=== PATIENT | female | born 1985 | race Caucasian/White ===

== ENCOUNTER 2016-06-22 09:34 | Inpatient (IN) | payer OTHER ==
[~2016-06-22] VITALS: Ht 177.8 cm; Wt 119.3 kg
[~2016-06-22 09:34] MED LIST: ALEV220T14 PO; IBUP600 PO; LORTA5 PO; YAZ PO
[2016-06-22] MEDS ORDERED: LACTATED RINGER'S 1000 ML INJ 1,000 ML IV ONE (10:50)
--- NOTE | 2016-06-22 10:54 | HHI.HP ---
HPI Chief Complaint for elective repeat cs at 39 weeks Date Seen: Jun 22, 2016 Time Seen: 10:30 Travel History International Travel<30 Days: No Contact w/Intl Traveler<30Days: No Known Affected Area: No History of Present Illness HPI previous cs and Vaginal delivery for repeat cs Para: 2 : 4 Miscarriage: 1 History Past Medical History Medical History: Denies Significant Hx Past Surgical History Narrative Surgical CS x1 Family History Family History: Negative Social History Alcohol Use: No Tobacco Use: No Substance Abuse: No Allergies-Medications (Allergen,Severity, Reaction): Coded Allergies: No Known Allergies (Verified , 11/25/11) Home Meds Active Scripts Ibuprofen (Motrin 600 Mg Tab)600 Mg [id number] Mg PO Q6H PRN (PAIN) #20 TAB Prov:Terrence Morales MD 06/11/13 Hydrocodone-Acetaminophen 5-325 mg ([place] 5-325 mg)325 Mg/5 Mg Tab1 Tab PO Q6H PRN (PAIN) #15 TAB Prov:Terrence Morales MD 06/11/13 Reported Medications Naproxen Sodium (Aleve Arthritis)220 Mg [id number] Mg PO BID 06/11/13 [Shara 28] No Conflict Check1 Tab PO DAILY 11/23/11 Review of Systems Except as stated in HPI: all other systems reviewed are Neg Physical Exam Narrative GENERAL: Well-nourished, well-developed patient. SKIN: Warm and dry. HEAD: Normocephalic and atraumatic. EYES: No scleral icterus. No injection or drainage. ENT: No nasal drainage noted. Mucous membranes pink. Airway patent. NECK: Supple, trachea midline. No JVD. CARDIOVASCULAR: Regular rate and rhythm without murmurs, gallops, or rubs. RESPIRATORY: Breath sounds equal bilaterally. No accessory muscle use. BREASTS: Bilateral exam showed no masses , no retractions, no nipple discharge. ABDOMEN/GI: Abdomen soft, non-tender, bowel sounds present, no rebound, no guarding Gravid to 39 weeks size Fundal Height: [-] GENITOURINARY: External Genitalia: intact and normal in appearance BUS glands: [-] Cervix: cl Dilatation: [-] Effacement: [-] Station: [-] Presentation: [-] Membranes: [intact or ruptured] Uterine Contractions: [-] FHT's: Category: 1 Baseline: [-] Reactive: [-] Variability: [-] Decels: [-] EXTREMITIES: No cyanosis or edema. BACK: Nontender without obvious deformity. No CVA tenderness. NEUROLOGICAL: Awake and alert. Motor and sensory grossly within normal limits. Five out of 5 muscle strength in all muscle groups. Normal speech. Data Data Vital Signs Reviewed: Yes Assessment/Plan Problem List: (1) Previous section (2) 39 weeks gestation of Assessment and Plan for repeat cs Girish Pyle MD Jun 22, 2016 10:54
[2016-06-22 11:07] LABS: BASOPHIL # 0.1 TH/MM3 (0-0.2); BASOPHIL % 0.6 % (0.0-2.0); EOSINOPHIL # 0.1 TH/MM3 (0-0.4); EOSINOPHIL % 0.5 % (0.0-4.0); HEMATOCRIT 23.4 % (35.0-46.0); LYMPH % 14.5 % (9.0-44.0); LYMPHOCYTE # 1.7 TH/MM3 (1.0-4.8); MEAN CELL VOLUME 65.7 FL (80.0-100.0); MEAN CORPUSCULAR HEMOGLOBIN 20.2 PG (27.0-34.0); MEAN CORPUSCULAR HGB CONC 30.7 % (32.0-36.0); MONO % 6.1 % (0.0-8.0); NEUT % 78.3 % (16.0-70.0); PLATELET COUNT 189 TH/MM3 (150-450); RED BLOOD COUNT 3.56 MIL/MM3 (4.00-5.30); RED CELL DISTRIBUTION WIDTH 23.3 % (11.6-17.2); WHITE BLOOD COUNT 11.5 TH/MM3 (4.0-11.0)
[2016-06-22 11:09] LABS: HEMO FLAGS AUTO DIFF
[2016-06-22 11:16] LABS: BACTERIA, URINE RARE /hpf; BLOOD, URINE NEG (NEG); COMMENT (UR) CULT NOT INDICATED; CULTURE IF INDICATED CULT NOT INDICATED; GLUCOSE,URINE NEG (NEG); KETONE, URINE NEG (NEG); MUCUS URINE FEW /lpf (OCC); NITRITE,URINE NEG (NEG); PH, URINE 5.5 (5.0-8.5); SQUAMOUS EPITHELIAL CELL URINE 2 /hpf (0-5); URINE COLOR LIGHT-YELLOW (YELLW/STRAW)
[2016-06-22] MEDS: LACTATED RINGER'S 1000 ML INJ 1,000 ML IV SCH ×2 (11:17→14:55)
[2016-06-22 11:39] LABS: SCAN/DIFF AUTO DIFF CONFIRMED
[2016-06-22] MEDS ORDERED: ceFAZolin 2 GM PREMIX 50 ML IV SCH (12:00)
[2016-06-22] MEDS ORDERED: PREN29TA PO (12:04)
[2016-06-22] MEDS ORDERED: ZOFR4TAB PO (12:04)
[2016-06-22] MEDS ORDERED: ZANTTAB9 PO (12:04)
[2016-06-22] MEDS ORDERED: DIPH1TAB36 PO (12:04)
[2016-06-22] MEDS ORDERED: CITRIC ACID-SODIUM CITRATE LIQ 30 ML UDC PO SCH (12:30)
[2016-06-22 15:07] LABS: AUTOMATED NEUTROPHIL # 8.2 TH/MM3 (1.8-7.7); BASOPHIL % 0.3 % (0.0-2.0); EOSINOPHIL % 0.4 % (0.0-4.0); HEMATOCRIT 22.3 % (35.0-46.0); LYMPH % 16.9 % (9.0-44.0); LYMPHOCYTE # 1.8 TH/MM3 (1.0-4.8); MEAN CELL VOLUME 66.6 FL (80.0-100.0); MEAN CORPUSCULAR HEMOGLOBIN 20.3 PG (27.0-34.0); MEAN CORPUSCULAR HGB CONC 30.5 % (32.0-36.0); NEUT % 78.4 % (16.0-70.0); PLATELET COUNT 165 TH/MM3 (150-450); RED BLOOD COUNT 3.34 MIL/MM3 (4.00-5.30); RED CELL DISTRIBUTION WIDTH 22.8 % (11.6-17.2); WHITE BLOOD COUNT 10.4 TH/MM3 (4.0-11.0)
[2016-06-22 15:12] LABS: HEMO FLAGS AUTO DIFF
[2016-06-22 16:48] LABS: OVALOCYTES 1+ (NORMAL); PLATELET ESTIMATE SMEAR NORMAL (NORMAL); PLATELET MORPHOLOGY NORMAL (NORMAL); SCAN/DIFF AUTO DIFF CONFIRMED
[2016-06-22] MEDS ORDERED: OXYTOCIN 10 UNIT/ML AMP ONE (16:59)
[2016-06-22] MEDS ORDERED: ONDANSETRON HCL 4 MG/2 ML VIAL ONE (17:47)
[2016-06-22] MEDS ORDERED: MORPHINE SULFATE PF 5 MG/10 ML VIAL ONE (17:47)
--- NOTE | 2016-06-22 17:58 | PD.OB.DELI ---
Procedure Note Section Procedure Pre Op Diagnosis: (1) Previous section Post Op Diagnosis: (1) Previous section Performed by Girish Pyle Procedure: Repeat Low Transverse Sec Indication for delivery: Desired elective repeat Informed consent obtained: For anesthesia, For procedure Confirmed correct: Procedure, Time-out taken Anesthesia: Spinal Urinary catheter: Inserted using sterile technique, To dependent drainage Sterile preparation: Duraprep Position: Supine with wedge to left side Operative Features Skin Incision: Pfannenstiel Uterine Incision: Low transverse w/knife / blunt ext Presentation: Occiput anterior Infant: Female, Single One Minute : 8 Five Minute : 9 Weight: 8#1 oz Status of infant: Viable Placenta delivered: Intact Medications: Antibiotics Estimated blood loss: 300 Procedure tolerated: Well Maternal Condition: Stable Condition: Stable Girish Pyle MD Jun 22, 2016 17:57
[2016-06-22] MEDS ORDERED: SIMETHICONE 80 MG CHEWABLE TAB PO PRN (18:00)
[2016-06-22] MEDS ORDERED: SODIUM CHLORIDE 0.9% FLUSH 10 ML FLUSH IV FLUSH PRN (18:00)
[2016-06-22] MEDS ORDERED: OXYTOCIN 30 UNITS-500ML PREMIX 500 ML IV ONE (18:00)
[2016-06-22] MEDS ORDERED: oxyCODONE/ACETAMINOPHEN 5 MG/325 MG TAB PO PRN (18:00)
[2016-06-22] MEDS ORDERED: KETOROLAC TROMETHAMINE 60 MG/2 ML (IM) VIAL IM PRN (18:00)
[2016-06-22] MEDS ORDERED: LACTATED RINGER'S 1,000 ML BAG IV ONE (18:03)
[2016-06-22 19:00] VITALS: BP 131/83; PULSE 91; RESP 18
[2016-06-22 19:15] VITALS: BP 128/71; PULSE 90; RESP 18
[2016-06-22] MEDS ORDERED: OXYTOCIN 30 UNITS-500ML PREMIX 500 ML ONE (19:15)
[2016-06-22 19:30] VITALS: BP 126/74; PULSE 88; RESP 18; TEMP 97.8
[2016-06-22] MEDS ORDERED: EPIDURAL-NALOXONE HCL 0.4 MG/ML AMP IV PRN (20:30)
[2016-06-22] MEDS ORDERED: EPIDURAL-DIPHENHYDRAMINE HCL 50 MG CAP PO PRN (20:30)
[2016-06-22] MEDS ORDERED: EPIDURAL-DO NOT ADMINISTER ANTICOAGULANTS XX PRN (20:30)
[2016-06-22] MEDS ORDERED: EPIDURAL-NO SYSTEMIC NARCOTICS XX PRN (20:30)
[2016-06-22] MEDS ORDERED: EPIDURAL-DIPHENHYDRAMINE HCL 50 MG/ML VIAL IV PUSH PRN (20:30)
[2016-06-22] MEDS ORDERED: SODIUM CHLORIDE 0.9% FLUSH 10 ML FLUSH IV FLUSH SCH (21:00)
[2016-06-22 22:00] VITALS: BP 108/75; PULSE 88; RESP 18; TEMP 97.8
[2016-06-22] MEDS ORDERED: LACTATED RINGER'S 1000 ML INJ 1,000 ML IV SCH (22:53)
[2016-06-23 00:30] VITALS: BP 117/69; PULSE 90; RESP 18; TEMP 98.3
[2016-06-23] MEDS: IBUPROFEN 600 MG TAB PO PRN ×4 (00:40→20:16)
[2016-06-23] MEDS ORDERED: OXYTOCIN 30 UNITS-500ML PREMIX 500 ML IV PRN (04:00)
[2016-06-23 05:30] VITALS: BP 124/62; PULSE 86; RESP 18; TEMP 98.4
[2016-06-23 06:02] LABS: BASOPHIL % 0.3 % (0.0-2.0); EOSINOPHIL % 0.3 % (0.0-4.0); HEMATOCRIT 21.4 % (35.0-46.0); LYMPH % 11.7 % (9.0-44.0); LYMPHOCYTE # 1.4 TH/MM3 (1.0-4.8); MEAN CELL VOLUME 66.1 FL (80.0-100.0); MEAN CORPUSCULAR HEMOGLOBIN 20.3 PG (27.0-34.0); MEAN CORPUSCULAR HGB CONC 30.7 % (32.0-36.0); MONO % 4.8 % (0.0-8.0); NEUT % 82.9 % (16.0-70.0); PLATELET COUNT 170 TH/MM3 (150-450); RED BLOOD COUNT 3.23 MIL/MM3 (4.00-5.30); RED CELL DISTRIBUTION WIDTH 23.2 % (11.6-17.2); WHITE BLOOD COUNT 12.1 TH/MM3 (4.0-11.0)
[2016-06-23 06:26] LABS: HEMO FLAGS AUTO DIFF
--- NOTE | 2016-06-23 07:18 | HHI.OB ---
Subjective Post Day: 1 Remarks doing well hgb stable Objective Vitals/I&O Vital Signs Date Time Temp Pulse Resp B/P Pulse Ox O2 Delivery O2 Flow Rate FiO2 06/23/16 05:30 98.4 86 18 124/62 06/23/16 00:30 90 18 117/69 06/23/16 00:30 98.3 06/22/16 22:00 97.8 88 18 108/75 06/22/16 19:30 97.8 06/22/16 19:30 88 18 126/74 06/22/16 19:15 128/71 06/22/16 19:15 90 18 06/22/16 19:00 91 18 06/22/16 19:00 131/83 Objective Remarks GENERAL: Well-nourished, well-developed patient. CARDIOVASCULAR: Regular rate and rhythm without murmurs, gallops, or rubs. RESPIRATORY: Breath sounds equal bilaterally. No accessory muscle use. ABDOMEN/GI: Abdomen soft, non-tender. Fundus: Firm, non-tender at umbilicus. GENITOURINARY: Light to moderate bleeding. EXTREMITIES: No cyanosis or edema, non-tender, without signs of DVT. Medications and IVs Current Medications Medications (Trade) Dose Ordered Sig/[place] Route Start Time Stop Time Status Last Admin (Lr 1000 ml Inj) 1,000 ml @ 100 mls/hr Q10H IV 06/22/16 22:53 06/23/16 18:52 (NS Flush) 2 ml BID IV FLUSH 06/22/16 21:00 (NS Flush) 2 ml UNSCH PRN IV FLUSH 06/22/16 18:00 (Mylicon Chew) 80 mg QID PRN PO 06/22/16 18:00 (Motrin) 600 mg Q6H PRN PO 06/22/16 18:00 06/23/16 06:26 (Toradol Inj) 30 mg Q6H PRN IM 06/22/16 18:00 06/23/16 17:59 (Percocet 5-325 Mg) 1 tab Q4H PRN PO 06/22/16 18:00 (Percocet 5-325 Mg) 2 tab Q4H PRN PO 06/22/16 18:00 Miscellaneous Information NO SYSTEMIC NARCOTICS TO BE GIVEN FO... UNSCH PRN XX 06/22/16 20:30 06/23/16 20:29 (Narcan Inj) 0.4 mg UNSCH PRN IV 06/22/16 20:30 06/23/16 20:29 (Benadryl Inj) 25 mg Q6H PRN IV PUSH 06/22/16 20:30 06/23/16 20:29 06/23/16 01:18 (Benadryl) 50 mg Q6H PRN PO 06/22/16 20:30 06/23/16 20:29 Miscellaneous Information ALL NURSING DEPARTMENTS UNSCH PRN XX 06/22/16 20:30 06/23/16 20:29 Assessment/Plan Problem List: (1) Previous section (2) 39 weeks gestation of Assessment and Plan CS pp day #1 Girish Pyle MD Jun 23, 2016 07:18
[2016-06-23 08:00] VITALS: BP 122/66; PULSE 84; RESP 16; TEMP 98.4
[2016-06-23 08:21] LABS: OVALOCYTES 1+ (NORMAL); PLATELET ESTIMATE SMEAR NORMAL (NORMAL); PLATELET MORPHOLOGY ENLARGED (NORMAL)
[2016-06-23 08:22] LABS: SCAN/DIFF AUTO DIFF CONFIRMED
[2016-06-23] MEDS ORDERED: DIPHTH/TETANUS/ACEL PERTUSSIS (BOOSTER) 0.5 ML VIAL/PFS IM ONE (16:00)
[2016-06-23] MEDS ORDERED: MEASLES, MUMPS, RUBELLA VACCINE 0.5 ML VIAL SQ ONE (16:00)
[2016-06-23 20:30] VITALS: BP 125/69; PULSE 86; RESP 18; TEMP 98
--- NOTE | 2016-06-23 21:51 | HHI.OB ---
Subjective Post Day: 1 Remarks doing well no pain and not light headed Objective Vitals/I&O Vital Signs Date Time Temp Pulse Resp B/P Pulse Ox O2 Delivery O2 Flow Rate FiO2 06/23/16 20:30 98.0 86 18 125/69 06/23/16 08:00 84 16 122/66 06/23/16 08:00 98.4 06/23/16 05:30 98.4 86 18 124/62 06/23/16 00:30 90 18 117/69 06/23/16 00:30 98.3 06/22/16 22:00 97.8 88 18 108/75 Objective Remarks GENERAL: Well-nourished, well-developed patient. ABDOMEN/GI: Abdomen soft, non-tender. Fundus: Firm, non-tender at umbilicus. GENITOURINARY: Light to moderate bleeding. EXTREMITIES: No cyanosis or edema, non-tender, without signs of DVT. Medications and IVs Current Medications Medications (Trade) Dose Ordered Sig/[place] Route Start Time Stop Time Status Last Admin (NS Flush) 2 ml BID IV FLUSH 06/22/16 21:00 (NS Flush) 2 ml UNSCH PRN IV FLUSH 06/22/16 18:00 (Mylicon Chew) 80 mg QID PRN PO 06/22/16 18:00 (Motrin) 600 mg Q6H PRN PO 06/22/16 18:00 06/23/16 20:16 (Percocet 5-325 Mg) 1 tab Q4H PRN PO 06/22/16 18:00 (Percocet 5-325 Mg) 2 tab Q4H PRN PO 06/22/16 18:00 Assessment/Plan Problem List: (1) Previous section (2) 39 weeks gestation of Assessment and Plan CS pp day #1 Girish Pyle MD Jun 23, 2016 21:51
[2016-06-24] MEDS: oxyCODONE/ACETAMINOPHEN 5 MG/325 MG TAB PO PRN ×2 (00:44→03:59)
[2016-06-24] MEDS ORDERED: IBUPROFEN 800 MG TAB PO PRN (01:00)
[2016-06-24 04:00] VITALS: BP 115/75; PULSE 80; RESP 20; TEMP 97.7
[2016-06-24 09:00] VITALS: BP 115/74; PULSE 84; RESP 16; TEMP 98
--- NOTE | 2016-06-24 09:01 | HHI.OB ---
Subjective Post Day: 2 Remarks doing well dc home Objective Vitals/I&O Vital Signs Date Time Temp Pulse Resp B/P Pulse Ox O2 Delivery O2 Flow Rate FiO2 06/24/16 04:00 97.7 80 20 115/75 06/23/16 20:30 98.0 86 18 125/69 Objective Remarks GENERAL: Well-nourished, well-developed patient. ABDOMEN/GI: Abdomen soft, non-tender. Fundus: Firm, non-tender at umbilicus. GENITOURINARY: Light to moderate bleeding. EXTREMITIES: No cyanosis or edema, non-tender, without signs of DVT. Medications and IVs Current Medications Medications (Trade) Dose Ordered Sig/[place] Route Start Time Stop Time Status Last Admin (NS Flush) 2 ml BID IV FLUSH 06/22/16 21:00 (NS Flush) 2 ml UNSCH PRN IV FLUSH 06/22/16 18:00 (Mylicon Chew) 80 mg QID PRN PO 06/22/16 18:00 06/24/16 00:49 (Percocet 5-325 Mg) 1 tab Q4H PRN PO 06/22/16 18:00 06/24/16 03:59 (Percocet 5-325 Mg) 2 tab Q4H PRN PO 06/22/16 18:00 (Motrin) 800 mg Q6H PRN PO 06/24/16 01:00 06/24/16 03:58 Assessment/Plan Problem List: (1) Previous section (2) 39 weeks gestation of Assessment and Plan CS pp day #2 dc home Discharge Planning Girish Whatley MD Jun 24, 2016 09:01
[2016-06-24] MEDS ORDERED: OXYC1TAB63 PO (09:02)
--- NOTE | 2016-06-24 09:03 | HHI.DCPOC ---
Discharge Care Plan Diagnosis: (1) Previous section Report Symptoms to Your Doctor -Temperate above 100.5 degrees -Redness, of incision or excessive or foul smelling drainage -Unusual pain or calf pain -Increased vaginal bleeding -Painful or difficulty urinating -Feelings of extreme sadness or anxiety after 2 weeks Goals to Promote Your Health * To prevent worsening of your condition and complications * To maintain your health at the optimal level Directions to Meet Your Goals Take your medications as prescribed Follow your dietary instruction Follow activity as directed Ensure plenty of rest for recovery Drink fluids for hydration Keep your appointments as scheduled Take your immunizations and boosters as scheduled If your symptoms worsen call your PCP, if no PCP go to Urgent Care Center or Emergency Room Smoking is Dangerous to Your Health. Avoid second hand smoke Call the 24-hour crisis hotline for domestic abuse at Girish Pyle MD Jun 24, 2016 09:03
--- NOTE | 2016-06-24 09:06 | HHI.DS ---
Admission Date Jun 22, 2016 at 10:13 Discharge Date: Jun 24, 2016 Admitting Diagnosis Diagnosis: (1) Previous section Diagnosis: Principal : Repeat Infant: Female, Single Brief History previous cs and Vaginal delivery for repeat cs Hospital Course doing well dc home Pt Condition on Discharge: Good Discharge Disposition: Discharge Home Discharge Instructions Diet Instructions: As Tolerated, No Restrictions Activities You Can Perform: Pelvic Rest Follow up Referrals: [facility] - 2 Weeks @ [facility] with Girish Pyle MD New Medications: Oxycodone-Acetaminophen (Oxycodone-Acetaminophen) 5-325 mg Tab 1 TAB PO Q4H PRN PAIN SCALE 3 TO 5 #30 TAB Continued Medications: Diphenhydramine-Acetaminophen (Tylenol Pm Extra Strength) 25-500 Mg Tab 1 CAP PO HS Vit-Iron Carbonyl ( Plus Iron 29-1 mg) 1 Tab Tab 1 TAB PO DAILY Nutritional Supplement #30 Ref 0 TAB Ranitidine (Zantac 75) 75 Mg Tab 75 MG PO DIRECTED Take 30 to 60 minutes before eating food or drinking beverages that cause heartburn. PRN Heartburn Ref 0 TAB Discontinued Medications: Ondansetron (Zofran) 4 Mg Tab 4 MG PO Q6HR PRN NAUSEA OR VOMITING Ref 0 TAB Girish Pyle MD Jun 24, 2016 09:05
--- NOTE | 2016-06-24 13:09 | MP ---
cc: JESSICA PYLE DATE OF SURGERY 06/22/2016 PROCEDURE Repeat low transverse section. PREOPERATIVE DIAGNOSIS Repeat section at 39 weeks POSTOPERATIVE DIAGNOSIS Repeat section at [address] Jessica Pyle ESTIMATED BLOOD LOSS 300 cc ANESTHESIA Spinal anesthesia, Dr. Marcos COMPLICATIONS None FINDINGS Live female , 's 8 and 9 and weight was 8 pounds 1 ounce PROCEDURE IN DETAIL After informed consent, the patient taken to the operating room where she was placed under spinal anesthesia in the supine position left lateral tilt. The abdomen, perineum and vagina were prepped and draped in a normal sterile fashion. After adequate anesthesia was assured and a time-out was taken, a Pfannenstiel skin incision was carried sharply through the skin to the fascia. The fascia was nicked in the midline, the incision was extended laterally using sharp dissection secondary to scar tissue. We dissected the fascia off the rectus muscle, the rectus muscle in the midline. The uterine incision was then made, low transverse type, carried sharply into the uterine cavity. Clear fluid was noted. The incision was extended laterally using blunt traction. A hand was placed in the uterus ushering the infant's head through the incision. We then proceeded to give fundal pressure and the 's head readily delivered. The nose and mouth suctioned well. The cord was clamped and cut and the infant was handed to pediatrics in attendance. Cord blood was collected. The placenta was delivered manually. The uterus exteriorized, wiped free from all remaining products of conception. The uterine incision was then closed with a running locking stitch of chromic suture. Good hemostasis was achieved. The rectus muscles were brought back together with chromic suture. The fascia was closed with Vicryl sutures. The skin was closed with a subcuticular stitch. Each layer was noted to be hemostatic prior to closure. The patient tolerated the procedure well. MD FREDDIE Apple/SUSIE /5:47 PM /1:01 PM
== END 2016-06-24 09:42 | disposition home or self-care (01) | DRG 766 ==
LOC: H2EB 10:13 → H1EA 19:47
PROVIDERS: ADMIT Obstetrics & Gynecology; ATTEND Obstetrics & Gynecology
PROC: 10D00Z1 Extraction of Products of Conception, Low, Open Approach (ICD-10-PCS; principal; 2016-06-22)
DX: O34.211 Maternal care for low transverse scar from previous cesarean delivery (principal); Z37.0 Single live birth; Z3A.39 39 weeks gestation of pregnancy
CPT/HCPCS: 59025; 81001; 85025; 86850; 86900; 86901; 86920; J0690; J1200; J2274; J2405; J2590; J7120